=== PATIENT | male | born 1935 | race Caucasian/White ===

== ENCOUNTER 2020-04-29 05:11 | Outpatient (CLI) | payer MEDICARE | END 2020-04-29 05:12 | disposition short-term general hospital (02) | LOC: EMS 05:11 | PROVIDERS: ATTEND Surgery | DX: R11.10 Vomiting, unspecified (principal) | CPT/HCPCS: A0425; A0429 ==

== ENCOUNTER 2020-10-23 09:19 | Outpatient (CLI) | payer MEDICARE | END 2020-10-23 23:59 | disposition critical access hospital (66) | LOC: EMS 09:19 | PROVIDERS: ATTEND Emergency Medicine | DX: R10.10 Upper abdominal pain, unspecified (principal); R11.10 Vomiting, unspecified | CPT/HCPCS: A0425; A0429 ==

== ENCOUNTER 2020-10-23 10:36 | Observation (INO) | payer MEDICARE ==
[2020-10-23] MEDS ORDERED: FAMOTIDINE 20 MG/2 ML VIAL IVP STA (11:04)
[2020-10-23 11:08] LABS: BASOPHILS % (AUTO) 0.2 %; EOSINOPHILS % (AUTO) 0.3 %; HGB - HEMOGLOBIN 14.1 g/dL (14.0-18.0); LYMPHOCYTES # (AUTO) 2.2 10^3/uL (1.5-3.5); LYMPHOCYTES % (AUTO) 22.9 %; MEAN CORPUSCULAR HEMOGLOBIN 31.2 pg (27.0-31.0); MEAN CORPUSCULAR HGB CONC 31.8 g/dL (32.0-36.0); MEAN CORPUSCULAR VOLUME 98.2 fL (80.0-94.0); MEAN PLATELET VOLUME 10.1 fL (7.4-11.4); MONOCYTES # (AUTO) 0.8 10^3/uL (0.0-1.0); MONOCYTES % (AUTO) 8.7 %; NEUTROPHILS # (AUTO) 6.6 10^3/uL (1.5-6.6); NEUTROPHILS % (AUTO) 67.5 %; PLT - PLATELET COUNT 186 10^3/uL (130-450); RED BLOOD COUNT 4.52 10^6/uL (4.70-6.10); RED CELL DISTRIBUTION WIDTH 13.2 % (12.0-15.0); WHITE BLOOD COUNT 9.7 x10^3/uL (4.8-10.8)
[2020-10-23 11:21] LABS: ALBUMIN 3.7 g/dL (3.2-5.5); BILIRUBIN,TOTAL 2.5 mg/dL (0.2-1.0); CALCIUM 9.1 mg/dL (8.5-10.3); CREATININE 0.9 mg/dL (0.6-1.2); TOTAL PROTEIN 7.5 g/dL (6.7-8.2)
[2020-10-23] MEDS ORDERED: IOVERSOL 320 100 ML VIAL IVP ONE ×2 (13:22→15:45)
--- NOTE | 2020-10-23 14:12 | CT Report ---
PROCEDURE: Abdomen/Pelvis W INDICATIONS: RUQ, epigastric pain CONTRAST: IV CONTRAST: Optiray 320 ml: 100 PO CONTRAST: *NO PO CONTRAST TECHNIQUE: After the administration of IV contrast, 5 mm thick sections acquired from the diaphragms to the symp hysis. 5 mm thick coronal and sagittal reformats were acquired. For radiation dose reduction, the f ollowing was used: automated exposure control, adjustment of mA and/or kV according to patient size. COMPARISON: None. FINDINGS: Image quality: Excellent. ABDOMEN: Lung bases: Peripheral subpleural linear groundglass changes. No pleural effusions. Heart size is no rmal. Heavy coronary artery calcification and prior median sternotomy. No hiatal hernia. Solid organs: Liver and spleen are normal in size and enhancement. Gallbladder is partially contrac desmond. Biliary system is non dilated. Pancreas enhances normally. No adrenal nodules. Kidneys demon strate normal size and enhancement, without hydronephrosis. Peritoneum and bowel: Trace amount of perihepatic and perisplenic ascites. There are several loops of moderately dilated and fluid-filled small bowel in the left abdomen. There is a transition point in the left mid abdomen, proximal to which there is an abnormal loop of small bowel likely distal ileum, demonstrating circumferential wall thickening and hyperenhancement. There is adjacent vascular engor gement. There are other shorter segment small bowel loops demonstrating similar wall thickening and e nhancement changes with proliferation of adjacent fat. There is a normal amount of solid stool in the colon. Small amount of free fluid is present in the lo w pelvis and in the left paracolic gutter. Nodes and vessels: No retroperitoneal or mesenteric adenopathy by size criteria. There is an endovas cular aortobiiliac stent. No abdominal aortic aneurysm sac is nonenhancing and measures about 5.4 x 5 .1 x 6.5 cm. Miscellaneous: No ventral hernias. PELVIS: Genitourinary: Bladder wall thickness is normal. Prostate gland is moderately enlarged. Miscellaneous: No inguinal hernias or adenopathy. Bones: No suspicious bony lesions. Multilevel chronic disc and endplate degenerative changes. 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 No vertebral body compression fractur es. IMPRESSION: 1. Findings suspicious for acute flare of inflammatory bowel disease with early or partial small katie l obstruction. Alternatively, this may be severe infectious enteritis. 2. Nonenhancing, stented abdominal aortic aneurysm measuring 5.4 cm in greatest transverse diameter. 3. Grade 2 L5 on S1 anterolisthesis. Reviewed by: Ally Delarosa MD on 10/23/2020 1:10 PM [place] Approved by: Ally Delarosa MD on 10/23/2020 1:10 PM [facility] Station ID: [id number]
[2020-10-23 14:30] LABS: BILIRUBIN,URINE NEGATIVE (NEGATIVE); GLUCOSE, URINE (UA) NEGATIVE (NEGATIVE); KETONES,URINE (UA) NEGATIVE (NEGATIVE); LEUKOCYTE ESTERASE, URINE NEGATIVE (NEGATIVE); NITRITE,URINE NEGATIVE (NEGATIVE); OCCULT BLOOD,URINE NEGATIVE (NEGATIVE); PH,URINE 6.5 PH (5.0-7.5); PROTEIN,URINE NEGATIVE (NEGATIVE); UROBILINOGEN,URINE 0.2 (NORMAL) E.U./dL (NORMAL)
[2020-10-23 14:34] LABS: CLARITY,URINE CLEAR (CLEAR)
--- NOTE | 2020-10-23 15:48 | ED Physician Documentation ---
History of Present Illness - Stated complaint Stated Complaint: UPPER ABD PX - Chief complaint Chief Complaint: Abd Pain - History obtained from History obtained from: Patient - Additonal information Additional information: 85-year-old man with past medical history of high blood pressure, hyperlipidemia, no abdominal surgical history except for inguinal hernia repair, history of partial small bowel obstruction last year conservatively managed, presents with epigastric and right upper quadrant abdominal pain radiating diffusely sudden onset at 3 AM on Friday, constant since then and waxing and waning in severity, currently mild. Also with associated nonbloody nonbilious nausea and vomiting. Patient states that he has not had a bowel movement since and feels constipated. However he is passing gas. Denies fevers, diarrhea, back pain, chest pain or shortness of breath. Review of Systems Ten Systems: 10 systems reviewed and negative Constitutional: denies: Fever, Chills GI: reports: Abdominal Pain, Nausea, Vomiting, Constipation : denies: Dysuria PD PAST MEDICAL HISTORY - Past Surgical History General: Other Cardiovascular: CABG, Coronary stent - Present Medications Home Medications: Ambulatory Orders Medication Instructions Recorded Confirmed Aspirin [Aspirin EC] 1 tab PO DAILY 10/23/20 10/23/20 Atorvastatin Calcium 1 tab PO DAILY 10/23/20 10/23/20 Lisinopril [Prinivil] 1 tab PO DAILY 10/23/20 10/23/20 Metoprolol Tartrate [Lopressor] 25 mg PO DAILY 10/23/20 10/23/20 - Allergies Allergies/Adverse Reactions: Allergies Allergy/AdvReac Type Severity Reaction Status Date / Time No Known Drug Allergies Allergy Verified 10/23/20 10:51 - Social History Does the pt smoke?: No Smoking Status: Never smoker Does the pt drink ETOH?: Yes ETOH Use: Wine Does the pt have substance abuse?: No PD ED PE NORMAL - Vitals Vital signs reviewed: Yes - General General: Alert and oriented X 3, No acute distress - HEENT HEENT: Atraumatic, PERRL, EOMI - Neck Neck: Supple, no meningeal sign - Cardiac Cardiac: RRR - Respiratory Respiratory: No respiratory distress, Clear bilaterally - Abdomen Abdomen: Other (ttp in RUQ/epigastrium) - Male Male : Deferred - Rectal Rectal: Other (brown stool in vault) - Back Back: No CVA TTP - Derm Derm: Normal color - Extremities Extremities: No deformity - Neuro Neuro: Alert and oriented X 3 - Psych Psych: Normal mood, Normal affect Results - Vitals Vitals: Vital Signs - 24 hr 10/23/20 10/23/20 10/23/20 10:42 11:09 11:35 Temperature 37.1 C 36.4 C L Heart Rate 75 76 78 Respiratory 21 17 25 H Rate Blood Pressure 167/130 H 167/130 H 146/100 H O2 Saturation 97 96 97 10/23/20 10/23/20 10/23/20 12:00 12:30 13:02 Temperature 36.9 C Heart Rate 74 74 75 Respiratory 23 23 22 Rate Blood Pressure 168/91 H 138/81 H 155/87 H O2 Saturation 96 95 98 10/23/20 10/23/20 15:09 15:30 Temperature Heart Rate 71 72 Respiratory 20 Rate Blood Pressure 152/100 H 155/90 H O2 Saturation 98 Oxygen O2 Source Room air - Labs Labs: Laboratory Tests 10/23/20 10/23/20 10/23/20 11:02 11:02 14:22 WBC 9.7 RBC 4.52 L Hgb 14.1 Hct 44.4 MCV 98.2 H MCH 31.2 H MCHC 31.8 L RDW 13.2 Plt Count 186 MPV 10.1 Neut # (Auto) 6.6 Lymph # (Auto) 2.2 Nelson # (Auto) 0.8 Eos # (Auto) 0.0 Baso # (Auto) 0.0 Absolute Nucleated RBC 0.00 Nucleated RBC % 0.0 Sodium 140 Potassium 4.2 Chloride 102 Carbon Dioxide 25 Anion Gap 13.0 BUN 21 H Creatinine 0.9 Estimated GFR (MDRD) 80 L Glucose 112 H Calcium 9.1 Total Bilirubin 2.5 H AST 16 ALT 17 Alkaline Phosphatase 57 Total Protein 7.5 Albumin 3.7 Globulin 3.8 Albumin/Globulin Ratio 1.0 Lipase 27 Urine Color YELLOW Urine Clarity CLEAR Urine pH 6.5 Ur Specific [place] 1.025 Urine Protein NEGATIVE Urine Glucose (UA) NEGATIVE Urine Ketones NEGATIVE Urine Occult Blood NEGATIVE Urine Nitrite NEGATIVE Urine Bilirubin NEGATIVE Urine Urobilinogen 0.2 (NORMAL) Ur Leukocyte Esterase NEGATIVE Ur Microscopic Review NOT INDICATED Urine Culture Comments NOT INDICATED PD MEDICAL DECISION MAKING - ED course ED course: 3pm-d/w Dr. Hernandez re: need for admission for enteritis vs partial SBO. she will see Mr. Mullen as inpatient, consider scoping. recommending I c/s medicine for admission. 3:30pm- d/w Dr. Moses who will call back. Departure - Departure Disposition: ED Place in Observation Clinical Impression: Gallstones, Bowel wall thickening, Constipation, Partial small bowel obstruction Condition: Stable Discharge Date/Time: 10/23/20 16:41
[2020-10-23] MEDS ORDERED: LACTATED RINGERS 1,000 ML IV STA (15:53)
--- NOTE | 2020-10-23 15:58 | Ultrasound Report ---
PROCEDURE: Abdomen Limited INDICATIONS: gallstones TECHNIQUE: Real-time focused scanning was performed of the abdomen, with image documentation. COMPARISON: None. FINDINGS: Liver measures 14.9 cm in length and demonstrates homogenous echotexture. Hepatopedal flow seen in the main portal vein. 4 mm gallstone is present at the gallbladder neck. Gallbladder is otherwise unremarkable with no wall thickening pericholecystic fluid or sonographic Davies sign. No intra or extra hepatic bile duct dil atation is seen. Pancreas is not well seen secondary to bowel gas. Right kidney measures 9.7 cm in le ngth. Nonobstructive right renal calculi noted. IMPRESSION: Cholelithiasis however no other sonographic criteria for acute cholecystitis. Please correlate clinic ally and with LFTs. Reviewed by: Anish Pierson MD on 10/23/2020 3:57 PM PST Approved by: Anish Pierson MD on 10/23/2020 3:57 PM PST Station ID: [id number]
[2020-10-23] MEDS ORDERED: ACETAMINOPHEN 325 MG TABLET PO PRN (15:59)
[2020-10-23] MEDS ORDERED: HYDROmorphone 0.5 MG/0.5 ML SYRINGE IVP PRN (15:59)
[2020-10-23] MEDS ORDERED: SODIUM CHLORIDE FLUSH 0.9% 10 ML SYRINGE IVP PRN (15:59)
[2020-10-23] MEDS ORDERED: ONDANSETRON 4 MG/2 ML VIAL IVP PRN (15:59)
--- NOTE | 2020-10-23 16:09 | HISTORY & PHYSICAL EXAMINATION ---
History - Past Surgical History General: reports: Other Cardiovascular: reports: CABG, Coronary stent Meds/Allgy - Home Medications Home Medications: Ambulatory Orders Medication Instructions Recorded Confirmed Aspirin [Aspirin EC] 1 tab PO DAILY 10/23/20 10/23/20 Atorvastatin Calcium 1 tab PO DAILY 10/23/20 10/23/20 Lisinopril [Prinivil] 1 tab PO DAILY 10/23/20 10/23/20 Metoprolol Tartrate [Lopressor] 25 mg PO DAILY 10/23/20 10/23/20 - Allergies Allergies/Adverse Reactions: Allergies Allergy/AdvReac Type Severity Reaction Status Date / Time No Known Drug Allergies Allergy Verified 10/23/20 10:51 Exam - Vital Signs Vital Signs: Vital Signs x48h Temp Pulse Resp BP Pulse Ox 10/23/20 13:02 36.9 C 75 22 155/87 H 98 10/23/20 11:35 78 25 H 146/100 H 97 10/23/20 11:09 36.4 C L 76 17 167/130 H 96 10/23/20 10:42 37.1 C 75 21 167/130 H 97 Conclusion/Plan - Lab Results Fish Bones: 10/23/20 11:02 10/23/20 11:02
[2020-10-23] MEDS: SODIUM CHLORIDE 0.9% 1,000 ML IV SCH ×2 (16:36→17:23)
[2020-10-23] MEDS: SODIUM CHLORIDE FLUSH 0.9% 10 ML SYRINGE IVP SCH (17:50)
[2020-10-23 18:00] LABS: C. PNEUMONIAE- RESP PCR PANEL NOT DETECTED
--- NOTE | 2020-10-23 18:21 | PHARMACY PROGRESS NOTE ---
- Best Possible Medication History Admit Date and Time: 10/23/20 1559 Processed by: Pharmacy Medication History completed: Yes Secondary Source(s): Physician records, Pharmacy records, Insurance records As the person ultimately responsible for medication therapy, providers are able to order a medication from an existing home medication list in [facility] via the "Reconcile Routine" prior to Confirmation of that medication by marketing support manager. Such practice is discouraged except when the physician, in their clinical judgment, deems that a medical need exists for a medication without regard to previous use.
[2020-10-23] MEDS: METOPROLOL TARTRATE 25 MG TABLET PO SCH (21:00)
--- NOTE | 2020-10-24 00:05 | HISTORY & PHYSICAL EXAMINATION ---
DATE OF SERVICE: 10/23/2020 Physician: Delaney Dubose MD HISTORY OF PRESENT ILLNESS: This is an 85-year-old white male with a history of hypertension, hyperlipidemia, and small-bowel obstruction one year ago that was managed conservatively. He has had no abdominal surgery except for an inguinal hernia repair. The patient presents with epigastric abdominal pain and nausea and vomiting that occurred suddenly in the middle of last night about 3 a.m. and it was constant and then started to wax and wane, but would not resolve and therefore, he came to the ER. He had no blood in his emesis, he denied any diarrhea. In fact, he thought he was constipated for the last four days; but, he was passing gas. He has had no fever, chills, rash, cough, chest pain or shortness of breath. In the ER, he underwent CT imaging, which showed a partial small-bowel obstruction and also possibly enteritis of the colon. The emergency room doctor called the General Surgeon, so Surgery would be aware that a consult is requested. The patient did not require an NG tube. He has been kept n.p.o. and has had no more emesis. PAST MEDICAL HISTORY 1. Hypertension. 2. Hyperlipidemia. 3. Prior small-bowel obstruction a year ago. 4. Coronary artery disease with history of coronary artery bypass graft and stents. MEDICATIONS 1. Aspirin 81 mg daily. 2. Lipitor 40 mg daily. 3. Lisinopril 10 mg daily. 4. Metoprolol tartrate 12.5 mg b.i.d. ALLERGIES: NONE. FAMILY HISTORY: Noncontributory. SOCIAL HISTORY: The patient is a nonsmoker who never smoked. He has no alcohol abuse or illicit drug use history. REVIEW OF SYSTEMS: A comprehensive review of systems was performed and the pertinent positives are listed, the rest are negative. PHYSICAL EXAM GENERAL: Elderly white male. He is in no distress. VITAL SIGNS: Blood pressure 150/84, heart rate 70-80 in sinus rhythm, afebrile, room air saturation 95%. HEENT: Unremarkable. NECK: No JVD in a 30-degree upright angle. CHEST: Clear anteriorly. HEART: Normal heart sounds without murmurs. ABDOMEN: Soft, nontender. No bowel sounds are heard. There is no guarding or rebound. EXTREMITIES: No clubbing, cyanosis or edema. NEUROLOGIC: Grossly intact. LABORATORY DATA: Normal electrolytes, BUN 21, creatinine 0.9, bilirubin 2.5. Normal liver tests and lipase. White blood count normal at 9.7, hemoglobin 14.1, platelet count normal at 186. No INR was done. Urinalysis unremarkable. His [employer] test came back negative for COVID. EKG: Normal sinus rhythm, rate of 74 with first-degree AV block, left atrial enlargement, early R/S transition consistent with cor pulmonale. IMAGING: Abdomen ultrasound showed gallstones. Abdomen and pelvis CT showed a partial small-bowel obstruction with multiple loops being distended and a transition point in the left mid abdomen. Solid stool seen in the colon. Biliary system is not dilated and the pancreas appears normal. Stented abdominal aortic aneurysm seen, measuring 5.4 cm at its greatest diameter. ASSESSMENT/DIAGNOSES 1. Small bowel obstruction, partial. 2. Enteritis. 3. Prerenal azotemia. 4. Gallstones. 5. Elevated bilirubin. 6. Hypertension, uncontrolled. 7. Peripheral vascular disease (abdominal aortic aneurysm, which has a stent). 8. Abnormal EKG suggesting cor pulmonale. 9. History of coronary artery disease. PLAN: Admit the patient to the Hospitalist service. Continue with n.p.o. status, except medication. Continue with antiemetics and pain medication as needed. Continue with bowel rest and advance the diet as tolerated and continue IV fluids for maintenance fluid. Await the General Surgery consult. Since SBO resolved with conservative, medical management last year, hopefully it will again this year. Continue his medications for cholesterol and high blood pressure. We will hold the aspirin in case there is a chance he may need surgery. Follow his electrolytes and CBC daily. Check magnesium. DEEP VENOUS THROMBOSIS PROPHYLAXIS: SCDs or compression stockings. CODE STATUS: FULL CODE. ATTESTATION: Patient is expected to be discharged or transferred to another facility within 96 hours: Yes. cc: Rancho Brandon MD TD: 10/23/2020 23:52 [facility]
[2020-10-24] MEDS: SODIUM CHLORIDE FLUSH 0.9% 10 ML SYRINGE IVP SCH ×2 (01:42→08:08)
[2020-10-24] MEDS: SODIUM CHLORIDE 0.9% 1,000 ML IV SCH (02:00)
[2020-10-24 05:35] LABS: BASOPHILS % (AUTO) 0.5 %; EOSINOPHILS # (AUTO) 0.3 10^3/uL (0.0-0.7); EOSINOPHILS % (AUTO) 4.9 %; HGB - HEMOGLOBIN 12.3 g/dL (14.0-18.0); LYMPHOCYTES % (AUTO) 31.9 %; MEAN CORPUSCULAR HEMOGLOBIN 31.1 pg (27.0-31.0); MEAN CORPUSCULAR HGB CONC 31.6 g/dL (32.0-36.0); MEAN CORPUSCULAR VOLUME 98.5 fL (80.0-94.0); MEAN PLATELET VOLUME 10.5 fL (7.4-11.4); MONOCYTES # (AUTO) 0.7 10^3/uL (0.0-1.0); MONOCYTES % (AUTO) 11.6 %; NEUTROPHILS # (AUTO) 3.1 10^3/uL (1.5-6.6); NEUTROPHILS % (AUTO) 50.6 %; PLT - PLATELET COUNT 168 10^3/uL (130-450); RED BLOOD COUNT 3.95 10^6/uL (4.70-6.10); RED CELL DISTRIBUTION WIDTH 13.2 % (12.0-15.0); WHITE BLOOD COUNT 6.1 x10^3/uL (4.8-10.8)
[2020-10-24 05:44] LABS: CALCIUM 8.2 mg/dL (8.5-10.3); CREATININE 0.9 mg/dL (0.6-1.2); MAGNESIUM 2.2 mg/dL (1.7-2.8)
[2020-10-24] MEDS ORDERED: PANTOPRAZOLE 40 MG VIAL IVP SCH (07:00)
[2020-10-24] MEDS: METOPROLOL TARTRATE 25 MG TABLET PO SCH (08:05)
--- NOTE | 2020-10-24 09:36 | XRAY Report ---
PROCEDURE: Abdomen 1 View X-Ray INDICATIONS: if SBO improved? TECHNIQUE: 1 view of the abdomen were acquired. COMPARISON: CT dated 10/23/2020 FINDINGS: Surgical changes and devices: Aortic stent graft, and numerous surgical clips Compared to the prior CT scan image from yesterday, bowel gas pattern appears improved. No definite r adiographically visible dilated bowel loops. No specific transition point. Residual contrast material noted within the bladder Soft tissues: No masses; visualized solid organ contours appear normal in size. No suspicious abdom inal calcifications. Bones: No suspicious bony abnormalities. IMPRESSION: Improved bowel gas pattern since CT dated yesterday as above. No specific transition point identified although continued surveillance with abdominal radiographs could be performed if the patient's sympt oms do not improve. Reviewed by: Anish Pierson MD on 10/24/2020 9:35 AM PST Approved by: Anish Pierson MD on 10/24/2020 9:35 AM PST Station ID: [id number]
[2020-10-24 12:09] VITALS: BP 139/74
--- NOTE | 2020-10-24 13:15 | Discharge Plan ---
Discharge Plan Problem Reviewed?: Yes Disposition: Home, Self Care Condition: Stable Diet: Regular Activity Restrictions: Activity as Tolerated Shower Restrictions: No (fall precaution) Health Concerns: gastroenteritis Plan of Treatment: you ate your whole lunch without nausea, vomiting or abdominal pain. Your symptoms are resolved. you likely has virus gastroenteritis, usually it will resolve by its own. You may Keep hydration at home and start to eat light diet first, and resume your home meds Care Goals: stabilization and resolve of your medical condition Assessment: discussed the care plan with you, you understood. Additional Instructions or Follow Up instructions: You may followup with your PCP in one to two weeks. Should your symptoms return or worsen, you may present to ER or call 911 for help. No Smoking: If you smoke, Please STOP! Call for help. Follow-up with: Rancho Brandon MD [Primary Care Provider] -
--- NOTE | 2020-10-24 13:22 | DISCHARGE SUMMARY ---
"Discharge Summary Admit Date: 10/23/20 Discharge Date: 10/24/20 Discharging Provider: Angel Castillo Primary Care Provider: Rancho Bonilla Condition at Discharge: Stable Discharge Disposition: 01 Home, Self Care Discharge Facility Name: home - DIAGNOSES Discharge Diagnoses with Status of Each Condition: 1, partial small bowel obstruction Resolved, patient tolerated regular diet without abdominal pain, nausea, vomiting. Patient walk at nurse Station and the hallway without distress. X-ray of abdomen show improved and no Specific transition point identified. Discussed with surgeon Dr. Hernandez, she agreed to discharge patient as well. 2, nausea, vomiting Resolved. patient tolerated regular diet without abdominal pain, nausea, vomi ting. Patient's nausea and vomiting was likely caused by virus enteritis. 3, AAA Stable, as CAT scan show. Follow-up with patient's PCP and vascular surgeon As out-patient 4, HTN Stable, resume patient home medications - HPI History of Present Illness: refer from Dr. Lara's ER note on 10/23/20 85-year-old man with past medical history of high blood pressure, hyperlipidemia, no abdominal surgical history except for inguinal hernia repair, history of partial small bowel obstruction last year conservatively managed, presents with epigastric and right upper quadrant abdominal pain radiating diffusely sudden onset at 3 AM on Friday, constant since then and waxing and waning in severity, currently mild. Also with associated nonbloody nonbilious nausea and vomiting. Patient states that he has not had a bowel movement since and feels constipated. However he is passing gas. Denies fevers, diarrhea, back pain, chest pain or shortness of breath. - CONSULTS | PROCEDURES Consultations: Dr. Hernandez Procedures: No procedure - HOSPITAL COURSE Hospital Course: Patient was admitted for nausea, vomiting, abdominal pain. CAT scan of abdomen show partial small bowel obstruction with enteritis. After the patient had bowel rest, intravenous IV fluids, patient also consult with GI surgeon, Wilder montano. Patient's partial bowel obstruction was resolved, patient tolerated regular diet without nausea, vomiting or abdominal pain, patient walk in the hallway without any distress. Discussed with GI surgeon, Dr. Hernandez, she agreed to discharge patient as well - ALLERGIES Allergies/Adverse Reactions: Allergies Allergy/AdvReac Type Severity Reaction Status Date / Time No Known Drug Allergies Allergy Verified 10/23/20 10:51 - MEDICATIONS Home Medications: Ambulatory Orders Medication Instructions Recorded Confirmed Aspirin [Aspirin EC] 81 mg PO DAILY 10/23/20 10/23/20 Atorvastatin Calcium 40 mg PO DAILY 10/23/20 10/23/20 Lisinopril [Prinivil] 10 mg PO DAILY 10/23/20 10/23/20 Metoprolol Tartrate [Lopressor] 12.5 mg PO BID 10/23/20 10/23/20 - PHYSICAL EXAM AT DISCHARGE General Appearance: positive: No acute distress, Alert. negative: Lethargic Eyes Bilateral: positive: Normal inspection, PERRL, No lid inflammation ENT: positive: ENT inspection nml, No signs of dehydration. negative: Purulent nasal drainage Neck: positive: Nml inspection, Trachea midline. negative: Thyromegaly, Tracheal deviation Respiratory: positive: Chest non-tender, No respiratory distress, Breath sounds nml. negative: Wheezes, Rales, Rhonchi Cardiovascular: positive: Regular rate & rhythm, No murmur. negative: Tachycardia, Bradycardia, Systolic murmur, Diastolic murmur Peripheral Pulses: positive: 2+ Abdomen: positive: Non-tender, Nml bowel sounds, No distention. negative: Ten derness, Guarding, Rebound Back: positive: Nml inspection Skin: positive: Color nml, Warm, Dry. negative: Cyanosis, Diaphoresis, Pallor Extremities: positive: Non-tender, Full ROM, Nml appearance. negative: Calf tenderness Neurologic/Psychiatric: positive: Oriented x3, Motor nml, Sensation nml, Mo od/affect nml. negative: Weakness, Sensory loss, Facial droop, Slurred/abnml speech, Depressed mood/affect - LABS Result Diagrams: 10/24/20 05:15 10/24/20 05:15 - FOLLOW UP Follow Up: you ate your whole lunch without nausea, vomiting or abdominal pain. Your symptoms are resolved. you likely has virus gastroenteritis, usually it will resolve by its own. You may Keep hydration at home and start to eat light diet first, and resume your home meds. You may followup with your PCP in one to two weeks. Should your symptoms return or worsen, you may present to ER or call 911 for help. - TIME SPENT Time Spent in Discharge (Minutes): 30"
== END 2020-10-24 15:30 | disposition home or self-care (01) ==
LOC: EDUNIT# → ED 10:36 → MS2 15:59
PROVIDERS: ADMIT Internal Medicine; ATTEND Nurse Practitioner Gerontology
DX: K56.600 Partial intestinal obstruction, unspecified as to cause (principal); I10 Essential (primary) hypertension; E78.5 Hyperlipidemia, unspecified; I71.4 Abdominal aortic aneurysm, without rupture; I25.10 Atherosclerotic heart disease of native coronary artery without angina pectoris; K80.20 Calculus of gallbladder without cholecystitis without obstruction; R79.89 Other specified abnormal findings of blood chemistry; R17 Unspecified jaundice; R94.31 Abnormal electrocardiogram [ECG] [EKG]; Z95.5 Presence of coronary angioplasty implant and graft; Z20.822 Contact with and (suspected) exposure to COVID-19; Z79.82 Long term (current) use of aspirin; Z79.899 Other long term (current) drug therapy; Z95.828 Presence of other vascular implants and grafts
CPT/HCPCS: 36415; 74018; 74177; 76705; 80048; 80053; 81003; 83690; 83735; 85025; 87631; 93005; 96374; 96375; 99284; 99285; A9270; G0378; J7120; Q9967; 0202U; 81001; 87086

== ENCOUNTER 2020-11-08 19:35 | Outpatient (CLI) | payer MEDICARE | END 2020-11-08 19:36 | disposition short-term general hospital (02) | LOC: EMS 19:35 | DX: R10.9 Unspecified abdominal pain (principal); R11.10 Vomiting, unspecified | CPT/HCPCS: A0425; A0429 ==

== ENCOUNTER 2022-10-10 19:05 | Outpatient (CLI) | payer MEDICARE | END 2022-10-10 19:06 | disposition EMS.NT | LOC: EMS 19:05 | DX: R41.0 Disorientation, unspecified (principal); R53.1 Weakness ==

== ENCOUNTER 2023-03-31 01:37 | Outpatient (CLI) | payer MEDICARE | END 2023-03-31 23:59 | disposition left against medical advice (07) | LOC: EMS 01:37 | DX: R10.84 Generalized abdominal pain (principal); R11.2 Nausea with vomiting, unspecified; R42 Dizziness and giddiness ==